=== PATIENT | female | born 1955 | race Caucasian/White ===

== ENCOUNTER 2023-12-29 07:02 | Inpatient (IN) | payer BC ==
[2023-12-29 07:29] LABS: HEMATOCRIT 36.6 % (34.3-46.0); HEMOGLOBIN 12.3 g/dL (11.2-15.5); MEAN CORPUSCULAR HEMOGLOBIN 29.4 pg (31.6-35.5); MEAN CORPUSCULAR HGB CONC 33.6 g/dL (31.6-35.5); MEAN CORPUSCULAR VOLUME 87.4 fL (81.4-99.0); RED BLOOD CELL COUNT 4.19 M/uL (3.77-5.24); WHITE BLOOD CELL COUNT,WBC 5.6 K/uL (3.2-11.0)
[2023-12-29 07:52] LABS: ALANINE AMINOTRANSFERASE,ALT 37 U/L (12-78); ALBUMIN 3.9 g/dL (3.4-5.0); ALKALINE PHOSPHATASE 100 U/L (46-116); ASPARTATE AMNIOTRANSFERASE,AST 34 U/L (15-37); BILIRUBIN TOTAL 0.5 mg/dL (0.2-1.0); BLOOD UREA NITROGEN,BUN 13 mg/dL (7-18); CARBON DIOXIDE,CO2 24 mmol/L (21-32); CHLORIDE,CL 97 mmol/L (100-108); CREATININE 0.7 mg/dL (0.6-1.0); ESTIMATED GFR 94 mL/min (>60); GLUCOSE RANDOM 115 mg/dL (74-106); POTASSIUM,K 3.9 mmol/L (3.6-5.2); PROTEIN TOTAL,TP 7.9 g/dL (6.4-8.2); SODIUM,NA 134 mmol/L (140-148)
[2023-12-29 07:55] LABS: ANION GAP 16.9 mmol/L (5.0-14.0)
[2023-12-29] MEDS: Nozin Nasal Sanitizer NASBOTH ONE (08:22)
[2023-12-29] MEDS: Lactated Ringers 1,000 ML IV SCH (08:25)
[2023-12-29] MEDS: Clindamycin in 0.9 % Sod Chlor 900 MG in Premix Bag 1 BAG IV ONE (08:53)
[2023-12-29] MEDS ORDERED: fentaNYL 250 MCG/5 ML SDV ONE ×2 (09:32→10:03)
[2023-12-29] MEDS ORDERED: Rocuronium 50 MG/5 ML Vial ONE ×2 (09:33→10:12)
[2023-12-29] MEDS ORDERED: Glycopyrrolate 0.2 MG/ML 5 ML MDV ONE (09:33)
[2023-12-29] MEDS ORDERED: Neostigmine Methylsulfate 10 MG/10 ML MDV ONE (09:33)
[2023-12-29] MEDS ORDERED: Ondansetron 4 MG/2 ML SDV ONE (09:33)
[2023-12-29] MEDS ORDERED: Dexamethasone 4 MG/ML SDV ONE (09:33)
[2023-12-29] MEDS ORDERED: Propofol 200 MG/20 ML SDV ONE (09:33)
[2023-12-29] MEDS: Bupivacaine 0.5% 50 ML MDV ONE (10:09)
[2023-12-29] MEDS ORDERED: Lactated Ringers 1,000 ML ONE (10:44)
[2023-12-29] MEDS ORDERED: Magnesium Hydroxide 400 MG/5 ML Susp 30 ML Cup PO PRN (11:40)
[2023-12-29] MEDS ORDERED: Ketorolac 30 MG/ML SDV IVPUSH PRN (11:40)
[2023-12-29] MEDS: Morphine 2 MG/ML SYRINGE IVPUSH ONE (11:55)
[2023-12-29] MEDS: oxyCODONE 5 MG Tab PO PRN ×2 (12:22→12:39)
[2023-12-29] MEDS: Sodium Chloride 0.9% 1,000 ML IV SCH (12:42)
[2023-12-29] MEDS: Ketorolac 15 MG/ML SDV IVPUSH PRN (12:42)
[2023-12-29] MEDS: SODIUM CHLORIDE 0.9% IV ONE (13:52)
[2023-12-29] MEDS: TRANEXAMIC ACID IV ONE (13:52)
[2023-12-29] MEDS: Morphine 2 MG/ML SYRINGE IVPUSH PRN (14:26)
[2023-12-29] MEDS: Ondansetron 4 MG/2 ML SDV IVPUSH PRN (15:22)
[2023-12-29] MEDS: Acetaminophen 325 MG Tab PO SCH (16:30)
[2023-12-29] MEDS: Clindamycin in 0.9 % Sod Chlor 600 MG in Premix Bag 1 BAG IV SCH (16:30)
[2023-12-29] MEDS: Nozin Nasal Sanitizer NASBOTH SCH (20:03)
[2023-12-29] MEDS: Fluticasone NASAL Spray 16 GM Bottle NASBOTH SCH (20:04)
[2023-12-29] MEDS: Triamcinolone Acetonide 0.1% Crm 15 GM Tube TOP SCH (20:07)
[2023-12-29] MEDS: Montelukast 10 MG Tab PO SCH (20:08)
[2023-12-29] MEDS: Meclizine 25 MG Tab PO SCH (20:08)
[2023-12-29] MEDS: Calcium Carbonate/Vitamin D3 1500 MG-400 Units Tab PO SCH (20:10)
[2023-12-29] MEDS ORDERED: [UNRECOGNIZED DRUG - OTHER] PO SCH (21:00)
[2023-12-29] MEDS ORDERED: LORATADINE PO SCH (21:00)
[2023-12-29] MEDS ORDERED: PSEUDOEPHEDRINE PO SCH (21:00)
[2023-12-29] MEDS ORDERED: CALCIUM CARBONATE PO SCH (21:00)
[2023-12-29] MEDS ORDERED: [UNRECOGNIZED DRUG - OTHER] PO SCH (21:00)
[2023-12-29] MEDS ORDERED: VITAMIN D3 PO SCH (21:00)
[2023-12-29] MEDS ORDERED: Non-Formulary Medication 1 Each (Meclizine [Antivert] 25 MG Tab.Chew) PO SCH (21:00)
[2023-12-29] MEDS: Pseudoephedrine 30 MG Tab PO SCH (21:20)
[2023-12-30] MEDS ORDERED: Ondansetron 4 MG Tab.DIS PO PRN (08:45)
[2023-12-30] MEDS: Aspirin 325 MG Tab.EC PO SCH (08:56)
[2023-12-30] MEDS: Vitamin B Complex Tab PO SCH (08:56)
[2023-12-30] MEDS: Fish Oil/Omega-3 Fatty Acids 1 Gm Cap PO SCH (08:57)
[2023-12-30] MEDS: Hydrochlorothiazide 25 MG Tab PO SCH (08:57)
[2023-12-30] MEDS: Fluticasone NASAL Spray 16 GM Bottle NASBOTH SCH (08:57)
[2023-12-30] MEDS: Loratadine 10 MG Tab PO SCH (08:58)
[2023-12-30] MEDS ORDERED: [UNRECOGNIZED DRUG - OTHER] PO SCH (09:00)
[2023-12-30] MEDS: oxyCODONE 5 MG Tab PO PRN ×2 (11:41→20:14)
[2023-12-30] MEDS: Docusate Sodium 100 MG Cap PO PRN (20:20)
[2023-12-30] MEDS ORDERED: Fluticasone NASAL Spray 16 GM Bottle NASBOTH SCH (21:00)
[2023-12-31 10:34] VITALS: BP 139/80; PULSE 102
== END 2023-12-31 11:45 | disposition home or self-care (01) | DRG 302 ==
LOC: JP.SDS 07:02 → JP.MS 11:40 → JP.SDS 12-30 08:45 → JP.MS 12-30 08:46
PROVIDERS: ADMIT Specialist; ATTEND Specialist
PROC: 0SRC069 Replacement of Right Knee Joint with Oxidized Zirconium on Polyethylene Synthetic Substitute, Cemented, Open Approach (ICD-10-PCS; principal; 2023-12-29 08:30)
DX: M17.11 Unilateral primary osteoarthritis, right knee (principal); I10 Essential (primary) hypertension; K21.9 Gastro-esophageal reflux disease without esophagitis; E78.5 Hyperlipidemia, unspecified; Z98.84 Bariatric surgery status; Z88.0 Allergy status to penicillin; Z88.2 Allergy status to sulfonamides; Z88.8 Allergy status to other drugs, medicaments and biological substances
CPT/HCPCS: 36415; 73560-26-RT; 73560-RT; 80053; 85027; 97110-GP; 97116-GP; 97161-GP; 97165-GO; 97530-GP; 97535-GO; A9270-GY; C1713; C1776; J0665; J0736; J1100; J1885; J2270; J2405; J2704; J2710; J3010; J3490; J7030; J7120